=== PATIENT | male | born 2005 | race Caucasian/White ===

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

== ENCOUNTER 2024-04-20 20:01 | Emergency (ER) | payer OTHER ==
[~2024-04-20] VITALS: Ht 162.6 cm; Wt 55.0 kg
[~2024-04-20 20:01] MED LIST changes: +OMEPRAZOLE20 MG PO; +ONDANSETRON ODT8 MG PO; +QUETIAPINE FUM100 MG PO
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
[2024-04-20] MEDS ORDERED: SUCRALFATE1 GM PO (20:14)
[2024-04-20 21:07] LABS: BILIRUBIN, URINE NEGATIVE (negative); BLOOD/HGB, URINE NEGATIVE (Negative); KETONE, URINE NEGATIVE (Negative); LEUK ESTERASE, URINE NEGATIVE (negative); NITRITE, URINE NEGATIVE (negative)
[2024-04-20 21:59] LABS: AMPHETAMINES, UR NEGATIVE (NEGATIVE); BARBITURATES, UR NEGATIVE (NEGATIVE); BENZODIAZEPINES, UR NEGATIVE (NEGATIVE); BUPRENORPHINE,UR NEGATIVE (NEGATIVE); COCAINE, UR NEGATIVE (NEGATIVE); MARIJUANA (THC), UR POSITIVE (NEGATIVE); MDMA, UR NEGATIVE (NEGATIVE); METHADONE, UR NEGATIVE (NEGATIVE); METHAMPHETAMINE, UR NEGATIVE (NEGATIVE); OPIATES, UR NEGATIVE (NEGATIVE); OXYCODONE, UR NEGATIVE (NEGATIVE); PHENCYCLIDINE, UR NEGATIVE (NEGATIVE); TRICYCLIC ANTIDEPRESSANT, UR NEGATIVE (NEGATIVE)
[2024-04-20 22:17] LABS: BASOPHILS 0.2 % (0-2); EOSINOPHILS 1.2 % (0-6); HEMATOCRIT 44.2 % (35.0-50.0); HEMOGLOBIN 14.7 g/dL (12.0-18.0); MCH 29.5 (27-36); MCHC 33.2 g/dl (30-36); MCV 88.9 fl (81-99); MONOCYTES 9.8 % (0-12); NEUTROPHILS 72.8 % (39-80); PLATELET COUNT 196 K/uL (140-440); RBC 4.98 M/ul (4.3-5.7)
[2024-04-20 22:40] LABS: ALBUMIN 4.3 g/dL (3.4-5.0); ALBUMIN/GLOBULIN RATIO 1.26 (1.1-2.4); ANION GAP 13.6 (7-21); BILIRUBIN, TOTAL 0.6 ng/dL (0.2-1.0); BUN/CREATININE RATIO 15.06 (6.0-28.6); CALCIUM 8.8 mg/dL (8.5-10.1); CREATININE, SERUM 0.73 mg/dL (0.70-1.30); POTASSIUM 3.6 mmol/L (3.5-5.1); PROTEIN, TOTAL 7.7 g/dL (6.4-8.2); TSH, 3RD GENERATION 1.304 uIU/mL (0.516-4.130)
[2024-04-20 23:21] LABS: N. GONORRRHOEAE BY PCR NOT DETECTED (NOT DETECT)
[2024-04-20 23:43] VITALS: BP 102/60
== END 2024-04-20 23:45 | disposition home or self-care (01) ==
LOC: ED 20:01
PROVIDERS: Internal Medicine
DX: R10.9 Unspecified abdominal pain (principal); Z88.2 Allergy status to sulfonamides; Z88.8 Allergy status to other drugs, medicaments and biological substances
CPT/HCPCS: 36415; 80053; 80307; 81003; 84443; 85025; 99283

== ENCOUNTER 2025-03-02 13:02 | Emergency (ER) | payer OTHER ==
[~2025-03-02] VITALS: Ht 162.6 cm; Wt 53.0 kg
[~2025-03-02 13:02] MED LIST changes: +SUCRALFATE1 GM PO
--- OUTSIDE RECORDS SUMMARY | 2025-03-02 13:09 | XMS ---
PreManage Notification: GE BRIAN Security Meter Shop Superintendent Events No recent Security Events currently on file CRITERIA MET - Group Notification CARE PROVIDERS ZABRINA SPENCER Pediatrics 01/19/2019-Current PHONE: Unknown -[facility] Dentist: [place] [facility] PHONE: [phone] ANIL MAYES Nurse Practitioner: Family Current [facility]: [phone] [facility] <UNAVAIL> PHONE: [phone] Care Guidelines exist for the following facilities: [facility] [place] ( 11/19/2018 ) Lu[place] VISIT COUNT (12 MO.) 2 [facility] TOTAL 2 NOTE: Visits indicate total known visits. ED/UCC VISIT TRACKING (12 MO.) 03/02/2025 13:03 [facility] [place] TYPE: Emergency COMPLAINT: - LEFT FINGER LACERATION 04/20/2024 20:02 [facility] [place] TYPE: Emergency COMPLAINT: - GENITAL PAIN DIAGNOSES: - Allergy status to other drugs, medicaments and biological substances - Allergy status to sulfonamides - Other specified disorders of penis - Unspecified abdominal pain INPATIENT VISIT TRACKING (12 MO.) No inpatient visits to display in this time frame [email or web address]
[2025-03-02] MEDS ORDERED: SERTRALINE HCL50 MG PO (13:58)
[2025-03-02] MEDS ORDERED: ARIPIPRAZOLE2 MG PO (13:58)
[2025-03-02] MEDS ORDERED: HYDROXYZINE HCL25 MG PO (13:58)
[2025-03-02 15:18] VITALS: BP 111/72
== END 2025-03-02 15:18 | disposition home or self-care (01) ==
LOC: ED 13:02
DX: S61.213A Laceration without foreign body of left middle finger without damage to nail, initial encounter (principal); W25.XXXA Contact with sharp glass, initial encounter; J45.909 Unspecified asthma, uncomplicated; Z88.1 Allergy status to other antibiotic agents; Z88.8 Allergy status to other drugs, medicaments and biological substances; Z79.899 Other long term (current) drug therapy
CPT/HCPCS: 12001; 99282